=== PATIENT | female | born 1955 | race Caucasian/White ===

== ENCOUNTER → 2017-12-02 | Outpatient (CLI) | payer OTHER ==
[~2017-12-02] VITALS: Ht 157.5 cm; Wt 59.9 kg
[~2017-12-02] MED LIST: COLACE100 MG PO; ULTRAM50 MG PO
== END | disposition home or self-care (01) ==
LOC: AMB 07:59
DX: D12.3 Benign neoplasm of transverse colon (principal); D12.2 Benign neoplasm of ascending colon; K57.30 Diverticulosis of large intestine without perforation or abscess without bleeding; K64.8 Other hemorrhoids; F17.200 Nicotine dependence, unspecified, uncomplicated
CPT/HCPCS: 88305